=== PATIENT | female | born 1975 | race Caucasian/White ===

== ENCOUNTER 2016-05-03 11:37 | Emergency (ER) | payer MEDICAID ==
[~2016-05-03] VITALS: Ht 167.6 cm; Wt 163.6 kg
[~2016-05-03 11:37] MED LIST: METH5 PO; PROP20 PO
[2016-05-03 11:40] VITALS: BP 174/73; PULSE 113; RESP 15; TEMP 98.2; O2SAT 95
--- NOTE | 2016-05-03 12:19 | PD ---
HPI Chief Complaint: Numbness/Tingling Time Seen by Provider: 12:19 Travel History International Travel<30 days: No Contact w/Intl Traveler<30days: No Traveled to known affect area: No History of Present Illness HPI 41-year-old female with history of hypothyroidism, OA presents to the ED for evaluation of 3 day history of bulging of the right eye, numbness and tingling of the bilateral upper and extremities. Gradual onset. Patient denies vision changes, pain with ocular movements. She states she noticed the eye bulge after her contact kept falling out. She denies weakness or limitations to range of motion of the extremities. She endorses chronic palpitations. Denies associated chest pain, diaphoresis. Endorses nausea, anorexia secondary to nausea, one episode of vomiting. She endorses normal, well-formed bowel movement this morning. Denies melena, hematochezia. The patient states that she saw her primary care provider, Dr. Cardoza, in the Fall for evaluation of rash behind bilateral ears and on bilateral hands as well as symmetric joint pain in all joints. She had lab work to rule out lupus. She states that "some markers were up" but she has not had an appointment with a assistant press operator offset. She is currently taking methimazole, prednisone, PFSH Past Medical History Blood Disorders: No Cancer: No Cardiovascular Problems: No Diabetes: No Diminished Hearing: No Endocrine: Yes Genitourinary: No Immune Disorder: No Musculoskeletal: Yes ("ARTHRITIS IN BOTH KNEES") Neurologic: No Psychiatric: No Reproductive: No Respiratory: No Thyroid Disease: Yes ?: Not : 3 Para: 1 Miscarriage: 2 Past Surgical History Section: Yes (X 1) Other Surgery: Yes (C-SEC X 1) Social History Alcohol Use: Yes (OCCASSIONAL) Tobacco Use: Yes (3/4 PPD) Substance Use: No Allergies-Medications (Allergen,Severity, Reaction): Coded Allergies: Azithromycin (Verified Allergy, Unknown, 05/03/16) Penicillin (Verified Allergy, Unknown, 05/03/16) Reported Meds & Prescriptions Reported Meds & Active Scripts Active Reported Hydroxyzine HCl 50 Mg Tab 50 Mg PO BID Prednisone 10 Mg Tab 10 Mg PO DAILY Methimazole 10 Mg Tab 10 Mg PO DAILY Gabapentin 300 Mg Cap 300 Mg PO BID Mobic (Meloxicam) 15 Mg Tab 15 Mg PO DAILY Lexapro (Escitalopram Oxalate) 20 Mg Tab 20 Mg PO DAILY Physical Exam Narrative GENERAL: Well-nourished, well-developed obese white female in no acute distress. SKIN: Warm and dry. Faint erythematous rash on bilateral cheeks. HEAD: Normocephalic. EYES: No scleral icterus. No injection or drainage. Right eye with mild exophthalmos. EOMI. PERRLA. NECK: Supple, trachea midline. No JVD or lymphadenopathy. No palpable thyroid mass. No tenderness to palpation. CARDIOVASCULAR: Regular rate and rhythm without murmurs, gallops, or rubs. RESPIRATORY: Breath sounds clear and equal bilaterally. No accessory muscle use. GASTROINTESTINAL: Abdomen soft, nondistended. Active bowel sounds. Mildly tender to palpation in the epigastric area and right upper quadrant. MUSCULOSKELETAL: No cyanosis, or edema. No limitations to range of motion or loss of strength of the extremities bilaterally. NEUROLOGICAL: Awake and alert. Cranial nerves II through XII intact. Motor and sensory grossly within normal limits. Five out of 5 muscle strength in all muscle groups. Chvostek sign negative. Normal patellar reflexes bilaterally. Normal speech. BACK: Nontender without obvious deformity. No CVA tenderness. Data Data Last Documented VS Vital Signs Date Time Temp Pulse Resp B/P Pulse Ox O2 Delivery O2 Flow Rate FiO2 05/03/16 13:38 98.2 80 21 96 Room Air Orders Electrocardiogram (05/03/16 12:30) Complete Blood Count With Diff (05/03/16 12:30) Comprehensive Metabolic Panel (05/03/16 12:30) Prothrombin Time / Inr (Pt) (05/03/16 12:30) Act Partial Throm Time (Ptt) (05/03/16 12:30) Thyroid Stimulating Hormone (05/03/16 12:30) Thyroxine (T4) (05/03/16 12:30) Free T3 (05/03/16 12:30) Ondansetron Odt (Zofran Odt) (05/03/16 12:30) Ct Orbits W Iv Contrast (05/03/16 ) Labs Laboratory Tests Test 05/03/16 13:30 White Blood Count 7.7 TH/MM3 Red Blood Count 4.67 MIL/MM3 Hemoglobin 13.3 GM/DL Hematocrit 38.6 % Mean Corpuscular Volume 82.7 FL Mean Corpuscular Hemoglobin 28.4 PG Mean Corpuscular Hemoglobin 34.4 % Concent Red Cell Distribution Width 14.8 % Platelet Count 316 TH/MM3 Mean Platelet Volume 9.1 FL Neutrophils (%) (Auto) 66.5 % Lymphocytes (%) (Auto) 25.1 % Monocytes (%) (Auto) 5.8 % Eosinophils (%) (Auto) 1.5 % Basophils (%) (Auto) 1.1 % Neutrophils # (Auto) 5.1 TH/MM3 Lymphocytes # (Auto) 1.9 TH/MM3 Monocytes # (Auto) 0.4 TH/MM3 Eosinophils # (Auto) 0.1 TH/MM3 Basophils # (Auto) 0.1 TH/MM3 CBC Comment DIFF FINAL Differential Comment MDM Medical Decision Making Medical Screen Exam Complete: Yes Emergency Medical Condition: Yes Differential Diagnosis Exophthalmos versus Graves' disease versus hyperthyroidism versus hypercalcemia versus hyperparathyroidism versus electrolyte abnormality versus SLE versus other Narrative Course 41-year-old female with history of hyperthyroidism, OA presents to the ED for evaluation of 3 day history of bulging of the right eye, numbness and tingling of the bilateral upper and extremities. Gradual onset. Patient denies vision changes, pain with ocular movements. She denies weakness or limitations to range of motion of the extremities. She endorses chronic palpitations. Denies associated chest pain, diaphoresis. Endorses nausea, anorexia secondary to nausea, one episode of vomiting. She endorses normal, well-formed bowel movement this morning. Denies melena, hematochezia. Fall the PCP (Dr. Cardoza) in the fall for evaluation of facial rash and symmetric joint pain. She had lab work to work rule out lupus at that time. She has not seen a assistant press operator offset. Vitals reviewed. Patient is tachycardic and hypertensive on presentation. Physical exam reveals an obese white female in no acute distress. There is exophthalmos of the right eye, EOMI, PERRLA. No palpable thyroid mass. No focal neural deficits. Chvostek sign negative. Mildly tender to palpation of the right upper quadrant and epigastric regions of the abdomen. Lab work ordered. This patient will be transferred to a medical bed. Please see oncoming provider note for disposition. Maegan Ellis May 03, 2016 12:19
[2016-05-03] MEDS ORDERED: ONDANSETRON ODT 4 MG TAB PO ONE (12:30)
[2016-05-03] MEDS ORDERED: GABA300C5 PO (12:42)
[2016-05-03] MEDS ORDERED: MOBI15TA PO (12:42)
[2016-05-03] MEDS ORDERED: METHI10 PO (12:42)
[2016-05-03] MEDS ORDERED: NORC5TAB PO (12:42)
[2016-05-03] MEDS ORDERED: LEXA20TA PO (12:42)
[2016-05-03] MEDS ORDERED: PRED10 PO (12:42)
[2016-05-03] MEDS ORDERED: HYDR50TA94 PO (12:42)
[2016-05-03 13:38] VITALS: PULSE 80; RESP 21; TEMP 98.2; O2SAT 96
[2016-05-03 13:57] LABS: AUTOMATED NEUTROPHIL # 5.1 TH/MM3 (1.8-7.7); BASOPHIL # 0.1 TH/MM3 (0-0.2); BASOPHIL % 1.1 % (0.0-2.0); EOSINOPHIL # 0.1 TH/MM3 (0-0.4); EOSINOPHIL % 1.5 % (0.0-4.0); HEMATOCRIT 38.6 % (35.0-46.0); HEMO FLAGS DIFF FINAL; LYMPH % 25.1 % (9.0-44.0); LYMPHOCYTE # 1.9 TH/MM3 (1.0-4.8); MEAN CELL VOLUME 82.7 FL (80.0-100.0); MEAN CORPUSCULAR HEMOGLOBIN 28.4 PG (27.0-34.0); MEAN CORPUSCULAR HGB CONC 34.4 % (32.0-36.0); MONO % 5.8 % (0.0-8.0); NEUT % 66.5 % (16.0-70.0); PLATELET COUNT 316 TH/MM3 (150-450); RED BLOOD COUNT 4.67 MIL/MM3 (4.00-5.30); RED CELL DISTRIBUTION WIDTH 14.8 % (11.6-17.2); WHITE BLOOD COUNT 7.7 TH/MM3 (4.0-11.0)
[2016-05-03 14:11] LABS: APTT (PATIENT) 25.4 SEC (24.3-30.1); INTERNATIONAL NORMALIZED RATIO 0.9 RATIO
[2016-05-03 14:29] LABS: ALT (GPT) 18 U/L (10-53); ANION GAP 8 MEQ/L (5-15); AST (GOT) 21 U/L (15-37); BICARBONATE 25.5 MEQ/L (21.0-32.0); BLOOD UREA NITROGEN 12 MG/DL (7-18); CHLORIDE 106 MEQ/L (98-107); GLOMERULAR FILTRATION RATE 122 ML/MIN (>89); SODIUM (NA) 139 MEQ/L (136-145)
[2016-05-03 14:30] LABS: ALKALINE PHOSPHATASE 66 U/L (45-117); FREE T3 4.19 PG/ML (2.18-3.98); THYROXINE (T4) 14.2 MCG/DL (4.8-13.9); TOTAL BILIRUBIN ADULT 0.3 MG/DL (0.2-1.0)
[2016-05-03 14:31] LABS: POTASSIUM 4.8 MEQ/L (3.5-5.1)
[2016-05-03 15:04] VITALS: BP 116/57; PULSE 79; RESP 20; O2SAT 98
--- NOTE | 2016-05-03 17:01 | RADRPT ---
EXAM DATE/TIME: 05/03/2016 16:09 [facility] COMPARISON: No previous studies available for comparison. INDICATIONS : Right eye proptosis RADIATION DOSE: 48.55 CTDIvol (mGy) MEDICAL HISTORY : Endocrine disorder. SURGICAL HISTORY : None. ENCOUNTER: Initial ACUITY: 3 days PAIN SCORE: 2/10 LOCATION: Right facial TECHNIQUE: Volumetric scanning of the orbits was performed. Using automated exposure control and adjustment of the mA and/or kV according to patient size, radiation dose was kept as low as reasonably achievable t o obtain optimal diagnostic quality images. FINDINGS: PRESEPTAL: The preseptal soft tissues are normal thickness. GLOBES: Normal shape without wall thickening. The lens is grossly intact. EXTRAOCULAR MUSCLES: Symmetric and normal thickness. ORBITAL THOMAS: Intact. The greater wing of the sphenoid is intact. OPTIC NERVES: Normal size. The optic canal is not enlarged. The retroconal fat is normal in appearance. LACRIMAL GLANDS: No evidence of mass. RETROAPIACL REGION: The optic chiasm is grossly intact. The visualized portion of the cavernous sinus and brainstem is i ntact. CONCLUSION: 1. Unremarkable examination of the orbits. Jaun Alcaraz MD on May 03, 2016 at 16:55 Board Certified Radiologist. This report was verified electronically.
--- NOTE | 2016-05-03 17:11 | PD ---
Data Data Last Documented VS Vital Signs Date Time Temp Pulse Resp B/P Pulse Ox O2 Delivery O2 Flow Rate FiO2 05/03/16 18:00 70 18 133/73 97 Room Air 05/03/16 13:38 98.2 Orders Electrocardiogram (05/03/16 12:30) Complete Blood Count With Diff (05/03/16 12:30) Comprehensive Metabolic Panel (05/03/16 12:30) Prothrombin Time / Inr (Pt) (05/03/16 12:30) Act Partial Throm Time (Ptt) (05/03/16 12:30) Thyroid Stimulating Hormone (05/03/16 12:30) Thyroxine (T4) (05/03/16 12:30) Free T3 (05/03/16 12:30) Ondansetron Odt (Zofran Odt) (05/03/16 12:30) Ed Urine Pregnancytest Poc (05/03/16 14:29) Beta Hcg (Quant/Titer) (05/03/16 15:26) Ed Poc Ultrasound (05/03/16 ) Ct Orbits W/O Iv Contrast (05/03/16 ) Labs Laboratory Tests Test 05/03/16 13:30 White Blood Count 7.7 TH/MM3 Red Blood Count 4.67 MIL/MM3 Hemoglobin 13.3 GM/DL Hematocrit 38.6 % Mean Corpuscular Volume 82.7 FL Mean Corpuscular Hemoglobin 28.4 PG Mean Corpuscular Hemoglobin 34.4 % Concent Red Cell Distribution Width 14.8 % Platelet Count 316 TH/MM3 Mean Platelet Volume 9.1 FL Neutrophils (%) (Auto) 66.5 % Lymphocytes (%) (Auto) 25.1 % Monocytes (%) (Auto) 5.8 % Eosinophils (%) (Auto) 1.5 % Basophils (%) (Auto) 1.1 % Neutrophils # (Auto) 5.1 TH/MM3 Lymphocytes # (Auto) 1.9 TH/MM3 Monocytes # (Auto) 0.4 TH/MM3 Eosinophils # (Auto) 0.1 TH/MM3 Basophils # (Auto) 0.1 TH/MM3 CBC Comment DIFF FINAL Differential Comment Prothrombin Time 10.0 SEC Prothromb Time International 0.9 RATIO Ratio Activated Partial 25.4 SEC Thromboplast Time Sodium Level 139 MEQ/L Potassium Level 4.8 MEQ/L Chloride Level 106 MEQ/L Carbon Dioxide Level 25.5 MEQ/L Anion Gap 8 MEQ/L Blood Urea Nitrogen 12 MG/DL Creatinine 0.55 MG/DL Estimat Glomerular Filtration 122 ML/MIN Rate Random Glucose 96 MG/DL Calcium Level 8.9 MG/DL Total Bilirubin 0.3 MG/DL Aspartate Amino Transf 21 U/L (AST/SGOT) Alanine Aminotransferase 18 U/L (ALT/SGPT) Alkaline Phosphatase 66 U/L Total Protein 7.6 GM/DL Albumin 3.0 GM/DL Thyroxine (T4) 14.2 MCG/DL Free Triiodothyronine (T3) 4.19 PG/ML pg/dL Thyroid Stimulating Hormone LESS THAN 3rd Gen 0.005 uIU/ML Human Chorionic Gonadotropin, [address] MIU/ML Quant MDM Supervised Visit with IGOR: No Interpretation(s) CT orbits: Unremarkable. CBC unremarkable CMP remarkable for hypoalbuminemia T4 14.2, high Free T3 4 0.19 TSH less than 0.005 HCG Coags unremarkable Narrative Course Assumed care patient. Is a 41-year-old woman who presents to the emergency department with paresthesias, right eye proptosis, found to be . She has known history of Graves' disease and her TSH is undetectable. She is on the missile, and prednisone. Despite this she appears to be having worsening exophthalmos likely related to Graves' disease. She has an appointment for manager post been out for several months. She is being evaluated for other autoimmune diseases. We'll check hCG, discussed with OB, she has an appointment with her primary doctor tomorrow. Point of care ultrasound showed empty uterus. Diagnosis Primary Impression: Hyperthyroidism Additional Impressions: Incidental Proptosis Additional Instruction: Continue current prescriptions. Follow-up with her primary care doctor tomorrow. You will need referral to an OB doctor, as well as to an home health travel pt. You will likely need to have your thyroid medicine changed. Return to the emergency department for any visual changes, or any other new or worsening symptoms. Use artificial tears for any signs of dry eye. Disposition: DISCHARGE HOME Condition: Stable Harmeet Graves MD May 03, 2016 17:11
[2016-05-03 17:41] LABS: BETA HCG QUANT 32053 MIU/ML (0-5)
[2016-05-03 18:00] VITALS: BP 133/73; PULSE 70; RESP 18; O2SAT 97
--- NOTE | 2016-05-05 07:10 | EKG ---
Date Performed: 05/03/2016 Time Performed: 12:41:41 PTAGE: 41 years EKG: Sinus rhythm NORMAL ECG PREVIOUS TRACING : 03/30/2015 15.36 Compared to prior tracing no significant change DOCTOR: Jesus Jones Interpretating Date/Time 05/05/2016 07:07:11
== END 2016-05-03 19:00 | disposition home or self-care (01) ==
LOC: NEPE 11:37
DX: O99.280 Endocrine, nutritional and metabolic diseases complicating pregnancy, unspecified trimester (principal); O99.210 Obesity complicating pregnancy, unspecified trimester; O99.330 Smoking (tobacco) complicating pregnancy, unspecified trimester; O99.283 Endocrine, nutritional and metabolic diseases complicating pregnancy, third trimester; M19.90 Unspecified osteoarthritis, unspecified site; R00.0 Tachycardia, unspecified; H05.20 Unspecified exophthalmos; E05.00 Thyrotoxicosis with diffuse goiter without thyrotoxic crisis or storm; E03.9 Hypothyroidism, unspecified; O16.9 Unspecified maternal hypertension, unspecified trimester; R00.2 Palpitations; Z3A.00 Weeks of gestation of pregnancy not specified; E05.90 Thyrotoxicosis, unspecified without thyrotoxic crisis or storm; F17.210 Nicotine dependence, cigarettes, uncomplicated; M25.50 Pain in unspecified joint; R21 Rash and other nonspecific skin eruption
CPT/HCPCS: 70480; 80053; 84436; 84443; 84481; 84702; 84703; 85025; 85610; 85730; 93005